=== PATIENT | female | born 1995 | race Caucasian/White ===

== ENCOUNTER → 2018-01-03 | Outpatient (CLI) | payer OTHER ==
--- NOTE | 2018-01-03 11:48 | RAD ---
Radionuclide hepatobiliary scan with gallbladder ejection fraction, 01/03/2018: History: Chronic right upper quadrant pain Following IV injection of 5.5 mCi of technetium 99m Choletec there was prompt uptake of the radionuclide from the blood stream by the liver. Activity is present in the bile ducts, gallbladder and small bowel at 10 minutes. No Kinevac is currently available for the ejection fraction phase. A Boost liquid meal was therefore utilized. Additional imaging demonstrated a gallbladder ejection fraction of 55%. IMPRESSION: 1. Normal radionuclide hepatobiliary scan. 2. The gallbladder ejection fraction was calculated at 55%.
== END | disposition home or self-care (01) ==
LOC: NM 07:35
PROVIDERS: ATTEND Internal Medicine Gastroenterology
DX: R10.13 Epigastric pain (principal)
CPT/HCPCS: 78226; 96374; 96375; A9537

== ENCOUNTER → 2018-01-05 | Outpatient (CLI) | payer OTHER ==
--- NOTE | 2018-01-05 14:27 | RAD ---
Right upper quadrant abdominal ultrasound, 01/05/2018: History: Pain. The gallbladder is within normal limits in size. There is no sonographic evidence of cholelithiasis. The gallbladder lazar are not thickened. No bile duct dilatation is seen. There is no evidence of a hepatic mass. The pancreas was largely obscured by overlying bowel. The visualized portions of the right kidney are unremarkable. IMPRESSION: No significant gallbladder abnormality is detected.
== END | disposition home or self-care (01) ==
LOC: US 07:59
PROVIDERS: ATTEND Internal Medicine Gastroenterology
DX: R10.11 Right upper quadrant pain (principal); R10.13 Epigastric pain
CPT/HCPCS: 76705

== ENCOUNTER 2018-08-11 23:58 | Emergency (ER) | payer OTHER ==
[~2018-08-11] VITALS: Ht 147.3 cm; Wt 68.0 kg
--- NOTE | 2018-08-12 00:02 | ED.ADGEN ---
Adult General Chief Complaint Chief Complaint ".. I was doing the dishes.. and there was a knife in the bottom off soapy water... and I caught little finger on it.. and now I can't bend it..." HPI HPI Patient is a 22 year old female who presents with above hx and 1 cm laceration to Rt. 5th proximal mays side. Pt. does have capillary refill and sensation equal to other fingers. Pt. however unable to flex finger. Pt. can extend. Pt. states disability was immediately noted after laceration. Patient does not remember her last tetanus. Patient denies any history immunosuppression. Patient denies any history of specific ill contacts or travel. Patient works for [email or web address]. She is right-hand dominant. Pt. also has a very superficial 2 cm laceration to Rt. palm. Review of Systems Review of Systems Constitutional: Denies fever or chills [] Eyes: Denies change in visual acuity, redness, or eye pain [] HENT: Denies nasal congestion or sore throat [] Respiratory: Denies cough or shortness of breath [] Cardiovascular: No additional information not addressed in HPI [] GI: Denies abdominal pain, nausea, vomiting, bloody stools or diarrhea [] : Denies dysuria or hematuria [] Musculoskeletal: Denies back pain or joint pain [] Integument: Denies rash or skin lesions [complaints of laceration to right fifth finger Neurologic: Denies headache, focal weakness or sensory changes [] Endocrine: Denies polyuria or polydipsia [] All other systems were reviewed and found to be within normal limits, except as documented in this note. Family History Family History Noncontributory Current Medications Current Medications Current Medications Medications (Trade) Dose Ordered Sig/[place] Start Time Stop Time Status Last Admin Dose Admin Bupivacaine HCl (Sensorcaine Mpf 0.5%) 10 ml 1X ONCE 08/12/18 00:30 08/12/18 00:31 DC Ceftriaxone Sodium (Rocephin Im) 1 gm 1X ONCE 08/12/18 00:30 08/12/18 00:31 DC 08/12/18 00:27 1 GM Diphtheria/ Tetanus/Acell Pertussis (Boostrix) 0.5 ml ONCE ONCE 08/12/18 00:30 08/12/18 00:31 DC 08/12/18 00:20 0.5 ML Lidocaine HCl 20 ml 1X ONCE 08/12/18 00:30 08/12/18 00:31 DC Neomycin/ Polymyxin/ Bacitracin (Triple Antibiotic Ointment) 1 pkt STK-MED ONCE 08/12/18 01:12 08/12/18 01:13 DC See nursing for home meds Allergies Allergies Allergies Coded Allergies Type Severity Reaction Last Updated Verified No Known Drug Allergies 08/12/18 No Physical Exam Physical Exam Constitutional: Well developed, well nourished, in acute distress, non-toxic appearance. [] HENT: Normocephalic, atraumatic, bilateral external ears normal, oropharynx moist, no oral exudates, nose normal. [] Eyes: PERRLA, EOMI, conjunctiva normal, no discharge. [] Neck: Normal range of motion, no tenderness, supple, no stridor. [] Cardiovascular:Heart rate regular rhythm, no murmur [] Lungs & Thorax: Bilateral breath sounds equal apexes with a few scattered wheezes on auscultation [] Abdomen: Bowel sounds normal, soft, no tenderness, no masses, no pulsatile masses. [] Skin: Warm, dry, no erythema, no rash. []Except Laceration as per history of present illness Back: No tenderness, no CVA tenderness. [] Extremities: No tenderness, no cyanosis, no clubbing, ROM intact, no edema. [ Except] Flexor deficits as per history of present illness Neurologic: Alert and oriented X 3, normal motor function, normal sensory function, no focal deficits noted. [] Psychologic: Affect anxious, judgement normal, mood normal. [] Current Patient Data Vital Signs Vital Signs Date Time Temp Pulse Resp B/P (MAP) Pulse Ox O2 Delivery O2 Flow Rate FiO2 08/12/18 00:11 98.2 99 16 99 Room Air EKG EKG [] Radiology/Procedures Radiology/Procedures [] Course & Med Decision Making Course & Med Decision Making Pertinent Labs and Imaging studies reviewed. (See chart for details). Procedure Note: Laceration clean and irrigated extensively with NS. Betadine to edge laceration and hand. Injected edge of laceration with local lidocaine 2 % and sensorcaine block .. Re-irrigated with NS. Closed with 6-0 Prolene x 4 simple sutures. Bulk dressing applied. 5 th finger, splinted to 4th finger. Tetanus up dated. Plan transfer to for surgical repair of flexor tendon laceration. 2 Cm laceration Rt. palm cleaned and irrigated. Discussed presentation, testing and treatment plan with - at . Will accept pt in transfer. Advised to close the wound in case a delay in surgery tomorrow AM. Pt. to be a direct admit - through Admission Services to Room 4314. [] Final Impression Final Impression 1. Laceration[]- 5th finger proximal- Appears to have lacerated flexor tendons. 2. Superficial 2 cm laceration to Rt. Palm. Dragon Disclaimer Dragon Disclaimer This electronic medical record was generated, in whole or in part, using a voice recognition dictation system. JANIS MCFADDEN MD Aug 12, 2018 00:02
[2018-08-12] MEDS ORDERED: DIPHTH,PERTUSS(ACELL),TET TOX 0.5 ML DISP.SYRIN. VAX IM ONE (00:11)
[2018-08-12] MEDS: LIDOCAINE 2% 20 ML VIAL. IJ ONE (00:18)
[2018-08-12] MEDS: BUPIVACAINE MPF 0.5% 10 ML VIAL. IJ ONE (00:18)
[2018-08-12] MEDS: DIPHTH,PERTUSS(ACELL),TET TOX 0.5 ML DISP.SYRIN. VAX IM ONE (00:20)
[2018-08-12] MEDS: cefTRIAXone IM 1 GM VIAL IM ONE (00:27)
[2018-08-12] MEDS ORDERED: NEOMY/BACITR/POLYMYXIN OINT PACKET. TP ONE (01:12)
[2018-08-12 01:40] VITALS: BP 138/86
== END 2018-08-12 01:44 | disposition short-term general hospital (02) ==
LOC: ER 23:58
DX: S61.216A Laceration without foreign body of right little finger without damage to nail, initial encounter (principal); S61.411A Laceration without foreign body of right hand, initial encounter; W26.0XXA Contact with knife, initial encounter; Y93.G1 Activity, food preparation and clean up; Y92.89 Other specified places as the place of occurrence of the external cause; Y99.8 Other external cause status
CPT/HCPCS: 12001; 90471; 90715; 96372; 99285; J0696